=== PATIENT | male | born 1965 | race Caucasian/White ===

== ENCOUNTER 2021-07-14 09:52 | Inpatient (IN) | payer OTHER ==
[~2021-07-14] VITALS: Ht 162.6 cm; Wt 77.1 kg
[2021-07-14 10:21] LABS: BASOPHILS % 0.4 % (0.0-1.0); EOSINOPHILS # (AUTO) 0.1 (0.0-0.4); EOSINOPHILS % 0.8 % (0.0-6.0); HEMATOCRIT 23.8 % (38.2-49.6); HEMOGLOBIN 8.1 g/dL (14.0-18.0); LYMPHOCYTES # (AUTO) 2.1 (1.0-3.2); LYMPHOCYTES % 27.9 % (18.0-39.1); MEAN CORPUSCULAR HEMOGLOBIN 30.9 pg (28-32); MEAN CORPUSCULAR VOLUME 90.8 fL (81-99); MONOCYTES # (AUTO) 0.8 (0.2-0.8); MONOCYTES % 9.9 % (4.4-11.3); NEUTROPHILS # (AUTO) 4.5 (2.1-6.9); NEUTROPHILS % 59.3 % (38.7-80.0); PLATELET COUNT 186 x10e3/uL (140-360); RED BLOOD COUNT 2.62 x10e6/uL (4.3-5.7); RED CELL DISTRIBUTION WIDTH 12.9 % (11.7-14.4)
[2021-07-14 10:27] LABS: INR 0.84; PROTHROMBIN TIME 12.3 seconds (11.9-14.5)
[2021-07-14 10:28] LABS: PARTIAL THROMBOPLASTIN TIME 23.5 seconds (23.8-35.5)
[2021-07-14 10:35] LABS: ALANINE AMINOTRANSFERASE 22 IU/L (0-55); ALBUMIN 3.3 g/dL (3.5-5.0); ALBUMIN/GLOBULIN RATIO 1.1 (0.8-2.0); ALKALINE PHOSPHATASE 56 IU/L (40-150); ANION GAP 13.4 mmol/L (8-16); BLOOD UREA NITROGEN 19 mg/dL (7-26); BUN/CREATININE RATIO 17 (6-25); CARBON DIOXIDE 22 mmol/L (22-29); CHLORIDE 105 mmol/L (98-107); CREATINE KINASE 83 IU/L (30-200); CREATININE, SERUM 1.14 mg/dL (0.72-1.25); EST GLOMERULAR FILTRATION RATE 66 ML/MIN (60-); GLUCOSE 104 mg/dL (74-118); POTASSIUM 3.4 mmol/L (3.5-5.1); SODIUM 137 mmol/L (136-145)
[2021-07-14 10:44] LABS: CLARITY,URINE CLEAR (CLEAR); COLOR,URINE YELLOW (YELLOW); KETONES,URINE NEGATIVE (NEGATIVE); LEUKOCYTE ESTERASE ,URINE NEGATIVE (NEGATIVE); NITRITE,URINE NEGATIVE (NEGATIVE); PROTEIN,URINE DIPSTICK NEGATIVE (NEGATIVE); URINE UROBILINOGEN 0.2 mg/dL (0.2 - 1)
[2021-07-14 10:56] LABS: BACTERIA,URINE FEW /HPF; EPITHELIAL CELLS,URINE RARE /LPF; WBC,URINE (MAN) 0-5 /HPF (0-5)
[2021-07-14] MEDS ORDERED: IOPAMIDOL 370 MG/ML 100 ML INFUS..BTL INJ ONE (11:00)
[2021-07-14] MEDS ORDERED: SODIUM CHLORIDE 0.9% 100 ML ONE (11:00)
[2021-07-14] MEDS ORDERED: ONDANSETRON HCL INJ 2MG/ML 2ML 2 MG/ML VIAL IV PRN (13:30)
[2021-07-14 13:39] LABS: % IRON SATURATION 10 % (15-50); IRON 44 ug/dL (65-175); TOTAL IRON BINDING CAPACITY 461 ug/dL (261-478); TRANSFERRIN 329 mg/dL (174-364)
[2021-07-14 15:16] VITALS: BP 120/73
[2021-07-14 15:37] VITALS: BP 120/73
[2021-07-14] MEDS: SODIUM CHLORIDE 0.9% 1000ML 1,000 ML IV SCH ×2 (16:18→23:30)
[2021-07-14] MEDS ORDERED: FERROUS SULFAT325 MG PO (16:45)
[2021-07-14] MEDS ORDERED: ZEGERID 40 MG1 EACH PO (16:45)
[2021-07-14] MEDS ORDERED: VITAMIN C500 MG PO (16:45)
[2021-07-14] MEDS ORDERED: VIAGRA25 MG (16:45)
[2021-07-14] MEDS ORDERED: HYDRALAZINE HCL 20 MG/ML VIAL IV PRN (18:00)
[2021-07-14 20:00] VITALS: BP_SYST 111; BP_SYST 113; BP_SYST 120; BP_DIAS 68; BP_DIAS 74
[2021-07-14] MEDS: IRON SUCROSE 100 MG in SODIUM CHLORIDE 0.9% 100 ML 100 ML IV SCH (20:23)
[2021-07-14 20:24] LABS: BASOPHILS % 0.4 % (0.0-1.0); EOSINOPHILS # (AUTO) 0.1 (0.0-0.4); EOSINOPHILS % 2.1 % (0.0-6.0); HEMATOCRIT 21.7 % (38.2-49.6); HEMOGLOBIN 7.4 g/dL (14.0-18.0); LYMPHOCYTES # (AUTO) 2.2 (1.0-3.2); LYMPHOCYTES % 33.1 % (18.0-39.1); MEAN CORPUSCULAR HEMOGLOBIN 30.8 pg (28-32); MEAN CORPUSCULAR HGB CONC 34.1 g/dL (31-35); MEAN CORPUSCULAR VOLUME 90.4 fL (81-99); MONOCYTES # (AUTO) 0.7 (0.2-0.8); MONOCYTES % 10.3 % (4.4-11.3); NEUTROPHILS # (AUTO) 3.6 (2.1-6.9); NEUTROPHILS % 53.2 % (38.7-80.0); PLATELET COUNT 164 x10e3/uL (140-360); RED CELL DISTRIBUTION WIDTH 13.2 % (11.7-14.4)
[2021-07-15] VITALS (9 sets, daily range): BP systolic 96–126; BP diastolic 66–84
[2021-07-15] MEDS ORDERED: BISACODYL 5 MG TAB EC PO ONE ×2 (00:30)
[2021-07-15] MEDS ORDERED: CYANOCOBALAMIN INJ 1,000 MCG/ML VIAL IM ONE (01:45)
[2021-07-15] MEDS ORDERED: CITRATE OF MAGNESIA 300ML BOTTLE PO ONE ×2 (05:00→07:00)
[2021-07-15 06:04] LABS: BASOPHILS % 0.6 % (0.0-1.0); EOSINOPHILS # (AUTO) 0.1 (0.0-0.4); EOSINOPHILS % 1.5 % (0.0-6.0); HEMATOCRIT 25.5 % (38.2-49.6); HEMOGLOBIN 8.2 g/dL (14.0-18.0); LYMPHOCYTES # (AUTO) 1.6 (1.0-3.2); LYMPHOCYTES % 22.2 % (18.0-39.1); MEAN CORPUSCULAR HEMOGLOBIN 31.1 pg (28-32); MEAN CORPUSCULAR HGB CONC 32.2 g/dL (31-35); MEAN CORPUSCULAR VOLUME 96.6 fL (81-99); MONOCYTES # (AUTO) 0.7 (0.2-0.8); MONOCYTES % 9.4 % (4.4-11.3); NEUTROPHILS # (AUTO) 4.7 (2.1-6.9); NEUTROPHILS % 65.3 % (38.7-80.0); PLATELET COUNT 193 x10e3/uL (140-360); RED BLOOD COUNT 2.64 x10e6/uL (4.3-5.7); RED CELL DISTRIBUTION WIDTH 13.9 % (11.7-14.4)
[2021-07-15 06:30] LABS: ANION GAP 11.5 mmol/L (8-16); CALCIUM 7.9 mg/dL (8.4-10.2); CREATININE, SERUM 1.05 mg/dL (0.72-1.25); POTASSIUM 3.5 mmol/L (3.5-5.1)
[2021-07-15 07:00] LABS: CHOL/HDL RATIO 5.4 (3.9-4.7); MAGNESIUM 2.1 MG/DL (1.3-2.1); PHOSPHORUS 3.4 MG/DL (2.3-4.7)
[2021-07-15 07:22] LABS: THYROID STIMULATING HORMONE 2.369 uIU/mL (0.350-4.940)
[2021-07-15] MEDS: CYANOCOBALAMIN INJ 1,000 MCG/ML VIAL IM SCH (09:46)
[2021-07-15] MEDS: SODIUM CHLORIDE 0.9% 1000ML 1,000 ML IV SCH ×2 (10:49→19:30)
[2021-07-15] MEDS ORDERED: PROPOFOL IV EMULSION 10 MG/ML 20 ML VIAL ONE (12:18)
[2021-07-15] MEDS ORDERED: MIDAZOLAM HCL 2 MG/2 ML VIAL ONE (12:50)
[2021-07-15] MEDS ORDERED: FENTANYL CITRATE/PF 100MCG/2 ML INJ ONE (12:50)
[2021-07-15] MEDS ORDERED: HYOSCYAMINE SULFATE 0.5 MG/ML INJ ONE (15:00)
[2021-07-15] MEDS: IRON SUCROSE 100 MG in SODIUM CHLORIDE 0.9% 100 ML 100 ML IV SCH (21:51)
[2021-07-16] VITALS (8 sets, daily range): BP systolic 103–132; BP diastolic 60–78
[2021-07-16] MEDS: SODIUM CHLORIDE 0.9% 1000ML 1,000 ML IV SCH ×2 (05:30→19:18)
[2021-07-16] MEDS: CYANOCOBALAMIN INJ 1,000 MCG/ML VIAL IM SCH (09:38)
[2021-07-16] MEDS ORDERED: HEPARIN SOD (PORCINE) 1000 UNIT/ML SDV ONE (13:13)
[2021-07-16] MEDS ORDERED: ZEGERID 40 MG1 EACH PO (17:05)
[2021-07-16] MEDS ORDERED: FERROUS SULFAT325 MG PO (17:05)
[2021-07-16 17:30] LABS: HEMATOCRIT 23.8 % (38.2-49.6); HEMOGLOBIN 8.1 g/dL (14.0-18.0)
[2021-07-16] MEDS: IRON SUCROSE 100 MG in SODIUM CHLORIDE 0.9% 100 ML 100 ML IV SCH (21:22)
[2021-07-17 01:24] VITALS: BP 121/76
[2021-07-17] MEDS: SODIUM CHLORIDE 0.9% 1000ML 1,000 ML IV SCH ×2 (01:30→05:24)
[2021-07-17 05:34] LABS: BASOPHILS % 0.3 % (0.0-1.0); EOSINOPHILS # (AUTO) 0.2 (0.0-0.4); EOSINOPHILS % 2.2 % (0.0-6.0); HEMOGLOBIN 7.6 g/dL (14.0-18.0); LYMPHOCYTES # (AUTO) 1.6 (1.0-3.2); LYMPHOCYTES % 21.4 % (18.0-39.1); MEAN CORPUSCULAR HEMOGLOBIN 30.8 pg (28-32); MEAN CORPUSCULAR VOLUME 93.1 fL (81-99); MONOCYTES # (AUTO) 0.7 (0.2-0.8); MONOCYTES % 9.3 % (4.4-11.3); NEUTROPHILS # (AUTO) 4.8 (2.1-6.9); NEUTROPHILS % 65.3 % (38.7-80.0); PLATELET COUNT 221 x10e3/uL (140-360); RED BLOOD COUNT 2.47 x10e6/uL (4.3-5.7); RED CELL DISTRIBUTION WIDTH 14.4 % (11.7-14.4)
[2021-07-17 05:50] LABS: ALBUMIN 2.6 g/dL (3.5-5.0); ALBUMIN/GLOBULIN RATIO 0.9 (0.8-2.0); ANION GAP 9.7 mmol/L (8-16); CALCIUM 7.5 mg/dL (8.4-10.2); CREATININE, SERUM 1.01 mg/dL (0.72-1.25); POTASSIUM 3.7 mmol/L (3.5-5.1)
[2021-07-17 06:28] VITALS: BP 122/74
[2021-07-17 08:11] VITALS: BP 119/80
[2021-07-17] MEDS: CYANOCOBALAMIN INJ 1,000 MCG/ML VIAL IM SCH (08:30)
[2021-07-17 09:13] VITALS: BP 119/80
== END 2021-07-17 10:30 | disposition home or self-care (01) | DRG 393 ==
LOC: ER 10:21 → ERHOLD 13:28 → MED/SURG3 15:16
PROVIDERS: ADMIT Internal Medicine; ATTEND Internal Medicine
PROC: 0DBK8ZZ Excision of Ascending Colon, Via Natural or Artificial Opening Endoscopic (ICD-10-PCS; 2021-07-15)
PROC: 0DB98ZX Excision of Duodenum, Via Natural or Artificial Opening Endoscopic, Diagnostic (ICD-10-PCS; principal; 2021-07-15 14:40)
PROC: 0DB78ZX Excision of Stomach, Pylorus, Via Natural or Artificial Opening Endoscopic, Diagnostic (ICD-10-PCS; 2021-07-15 14:40)
PROC: 0DBL8ZZ Excision of Transverse Colon, Via Natural or Artificial Opening Endoscopic (ICD-10-PCS; 2021-07-15 14:40)
DX: K64.9 Unspecified hemorrhoids (principal); K29.81 Duodenitis with bleeding; N17.9 Acute kidney failure, unspecified; D62 Acute posthemorrhagic anemia; K20.90 Esophagitis, unspecified without bleeding; K44.9 Diaphragmatic hernia without obstruction or gangrene; K26.9 Duodenal ulcer, unspecified as acute or chronic, without hemorrhage or perforation; K22.70 Barrett's esophagus without dysplasia; D50.9 Iron deficiency anemia, unspecified; E86.0 Dehydration; D64.9 Anemia, unspecified; K57.90 Diverticulosis of intestine, part unspecified, without perforation or abscess without bleeding; K29.70 Gastritis, unspecified, without bleeding; E87.6 Hypokalemia; R19.7 Diarrhea, unspecified; E53.8 Deficiency of other specified B group vitamins; Z20.822 Contact with and (suspected) exposure to COVID-19; R06.89 Other abnormalities of breathing
CPT/HCPCS: 36415; 43239; 45378; 45385; 70450; 71045; 74174; 78278; 80053; 80061; 81001; 82550; 82553; 82607; 82746; 83036; 83540; 83735; 84100; 84439; 84443; 84466; 84484; 85014; 85018; 85025; 85045; 85610; 85730; 86850; 86900; 88305; 88312; 88342; 93005; 93306; 93880; 94799; 97139; 99284; A9512; J1644; J1756; J1980; J2250; J3010; J3420; J7030; J7050; Q9967; U0002